=== PATIENT | female | born 1990 | race Caucasian/White ===

== ENCOUNTER 2016-08-04 09:42 | Emergency (ER) | payer OTHER ==
[2016-08-04 09:56] VITALS: RESP 16; TEMP 97.9
--- NOTE | 2016-08-04 10:23 | UCPHY ---
H & P Patient Type: Established Chief Complaint Nursing Narrative: C/o L ear pain x 2 days. Time Seen by Provider: 08/04/16 10:14 HPI/ROS: Chief complaint left ear pain HPI 26-year-old with a history of recurrent ear infections in the past presenting with 2 days of left ear pain. Patient states that was more pronounced yesterday but still present today. No discharge from the ear. No hearing loss. She states she is going out of town fly next weakness clean worried that she might have a ear infection. No fevers or chills. No jaw pain or tooth pain. Does have some pain just in for front of and below her ear and states that feels a bit uncomfortable she presses there. No sore throat. No nasal discharge. ROS: 10 point Review of Systems is negative except as noted in the HPI. Past medical history: Ear infections Medications: None Allergies: Cefaclor Social history: Nonsmoker, occasional alcohol, occasional marijuana Physical exam: Gen: Awake, Alert, No Distress HEENT: Bilateral TMs are normal and ear canals are normal, there is no effusion , no bulging. Face: No tenderness of the mastoid to percussion, no rash, no soft tissue tenderness Nose: no rhinorrhea Eyes: PERRLA, EOMI Mouth: Moist mucosa, dentition is normal. No temporomandibular joint clicking or tenderness, no trismus, Neck: Supple, no JVD, no lymphadenopathy Skin: no rash Neuro: CN II-XII intact, Sensation grossly intact, Strength 5/5 in bilateral upper and lower extremities - Personal History LMP (Females 10-55): 22-28 Days Ago Current Tetanus Diphtheria and Acellular Pertussis (TDAP): Yes Tetanus Vaccine Date: WITHIN 10 YRS - Medical/Surgical History Hx Asthma: No Hx Chronic Respiratory Disease: No Hx Diabetes: No Hx Cardiac Disease: No Hx Renal Disease: No Hx Cirrhosis: No Hx Alcoholism: No Hx HIV/AIDS: No Hx Splenectomy or Spleen Trauma: No Other PMH: Denies surgery - Family History Significant Family History: No pertinent family hx - Social History Smoking Status: Never smoked Constitutional: Initial Vital Signs Temperature (C) 36.6 C 08/04/16 09:55 Heart Rate 67 08/04/16 09:55 Respiratory Rate 16 08/04/16 09:55 Blood Pressure 133/91 H 08/04/16 09:55 O2 Sat (%) 98 08/04/16 09:55 O2 Delivery Mode Room Air Allergies/Adverse Reactions: [facility] Adverse Reaction (Intermediate, Verified 08/04/16 09:56) HEAD SWELLS UP Home Medications: Medication Instructions Recorded NK [No Known Home Meds] 08/04/16 Departure - Departure Disposition: Home, Routine, Self-Care Clinical Impression: Otalgia of left ear Condition: Good Instructions: Earache (ED) Additional Instructions: Follow up with primary care doctor to [facility] in 3-4 days if symptoms are not improving. Referrals: [facility] [Outside] - As per Instructions - PQRS PQRS Measurement: NA
[2016-08-04 10:26] VITALS: BP 128/89; PULSE 71; O2SAT 96
== END 2016-08-04 10:27 | disposition home or self-care (01) ==
LOC: CED 09:42
DX: H92.02 Otalgia, left ear (principal)
CPT/HCPCS: 99214-PO; G0463-PO